=== PATIENT | male | born 1970 | race Caucasian/White ===

== ENCOUNTER → 2016-08-14 | Day surgery (SDC) | payer OTHER ==
[~2016-08-14] MED LIST: AMOXICILLIN PO; NO MEDICATIONS; PANTOPRAZOLE SO40 MG PO; TYLOX 5/500 CAP1 CAP PO
--- NOTE | ~2016-08-14 | OR ---
Unit #: [id number] #: [id number] Patient: ANGEL ZALDIVAR JR [id number] [address] [address] [id number] O MR#: [id number] NAME: ANEGL ZALDIVAR JR ROOM: Date of Procedure: 08/14/2016 Admission Date: 08/14/2016 Surgeon: Oren Schreiber M.D. : 1970 Attending Physician: Oren Schreiber M.D. OPERATIVE REPORT PROCEDURE PERFORMED Esophagogastroduodenoscopy with biopsy. INDICATIONS FOR PROCEDURE The patient with dysphagia, undergoing evaluation with upper endoscopy. MEDICATIONS Monitored anesthesia. POSTOPERATIVE FINDINGS 1. Very large tonsils. 2. LA grade D esophagitis. 3. Midesophageal biopsies taken to rule out eosinophilic esophagitis. 4. History of polyps, biopsies taken. 5. Normal duodenum and distal duodenum. PLAN Continue with PPI therapy. Follow up on the pathology report. The patient advised to see an ENT physician for tonsillectomy. DESCRIPTION OF PROCEDURE The patient was explained of the procedure, risks, and benefits along with risks and benefits of anesthesia. He was brought to the endoscopy room. Propofol anesthesia was given. Bite block was placed. The scope was passed down the mouth into the esophagus, stomach, duodenum, and distal duodenum. Findings as described. Biopsies taken. Biopsies were also taken in midesophagus. Gently, the scope was pulled out. He tolerated it well. No major complications were seen. Dictated by... Gordon Foley/moe TD: 08/23/2016 23:35 JOB #: [id number] CC: Robert Burgos M.D. Unit #: [id number] #: [id number] Patient: ANGEL ZALDIVAR JR OPERATIVE REPORT X Oren Schreiber MD X PROCEDURE OPERATIVE NOTE
== END | disposition home or self-care (01) ==
LOC: COPS 08:32
DX: K20.9 Esophagitis, unspecified (principal); J35.1 Hypertrophy of tonsils; Z87.19 Personal history of other diseases of the digestive system
CPT/HCPCS: 88305